=== PATIENT | female | born 1935 | race Caucasian/White ===

== ENCOUNTER 2019-07-11 21:57 | Emergency (ER) | payer MEDICARE, BC ==
[2019-07-11 23:10] LABS: CHLORIDE,CL 104 mmol/L (98-107); SODIUM,NA 140 mmol/L (136-145)
[2019-07-11 23:13] LABS: ANION GAP 18.9 mmol/L (10-20)
[2019-07-11] MEDS ORDERED: Sodium Chloride 0.9% 500 ML IV ONE (23:22)
--- NOTE | 2019-07-12 00:49 | EDM.PDOC ---
ED HPI GENERAL MEDICAL PROBLEM - General Chief Complaint: General Stated Complaint: LOW BP Time Seen by Provider: 07/11/19 22:12 Source of Information: Reports: Patient History Limitations: Reports: No Limitations - History of Present Illness INITIAL COMMENTS - FREE TEXT/NARRATIVE: Pt states she had low BP at home Feels weak No fever No chest pain No SOB No cough No N/V/D No dysuria Onset: Today, Gradual Location: Reports: Generalized - Related Data Allergies Allergy/AdvReac Type Severity Reaction Status Date / Time celecoxib [From Celebrex] Allergy Other Verified 07/11/19 21:49 hydromorphone [From Dilaudid] Allergy Dizziness Verified 07/11/19 21:49 losartan Allergy Other Verified 07/11/19 21:49 meperidine [From Demerol] Allergy Confusion Verified 07/11/19 21:49 morphine Allergy Other Verified 07/11/19 21:49 simvastatin [From Zocor] Allergy Other Verified 07/11/19 21:49 Home Meds: Home Meds Acetaminophen [Tylenol] 650 mg PO Q4H PRN 07/11/19 [History] Apixaban [Eliquis] 5 mg PO BID 07/11/19 [History] Nystatin/Triamcinolone Crm [Mycolog Crm] 15 gm .XX BID PRN 07/11/19 [History] amLODIPine Besylate [Amlodipine Besylate] 1 tab PO DAILY 07/11/19 [History] glipiZIDE [Glipizide ER] 1 tab PO DAILY 07/11/19 [History] lisinopriL [Lisinopril] 1 tab PO DAILY 07/11/19 [History] Past Medical History Cardiovascular History: Reports: Afib, Heart Failure, High Cholesterol, Hypertension, Other (See Below) Other Cardiovascular History: ascending aorta dilation Respiratory History: Reports: Sleep Apnea Gastrointestinal History: Reports: Cholelithiasis, Diverticulosis, GERD, Hiatal Hernia, PUD Genitourinary History: Reports: Renal Disease Musculoskeletal History: Reports: Osteoarthritis, Osteoporosis, Other (See Below ) Other Musculoskeletal History: bilateral carpal tunnel syndrome, polymyalgia rheumatica Neurological History: Reports: Neuropathy, Peripheral, Other (See Below) Other Neuro History: cervical stenosis of spinal canal Endocrine/Metabolic History: Reports: Diabetes, Type II, Obesity/BMI 30+ Hematologic History: Reports: Polycythemia Dermatologic History: Reports: Other (See Below) Other Dermatologic History: atopic dermatitis Social & Family History - Tobacco Use Smoking Status *Q: Never Smoker ED ROS GENERAL - Review of Systems Review Of Systems: See Below Constitutional: Reports: Weakness HEENT: Reports: No Symptoms Respiratory: Reports: No Symptoms Cardiovascular: Reports: No Symptoms GI/Abdominal: Reports: No Symptoms : Reports: No Symptoms Musculoskeletal: Reports: No Symptoms Neurological: Reports: No Symptoms ED EXAM, GENERAL - Physical Exam Exam: See Below Exam Limited By: No Limitations General Appearance: Alert, Mild Distress Throat/Mouth: Normal Oropharynx Neck: Supple Respiratory/Chest: Lungs Clear Cardiovascular: Regular Rate, Rhythm GI/Abdominal: Soft, Tender Extremities: Normal Inspection Neurological: Alert, Oriented, No Motor/Sensory Deficits Psychiatric: Normal Affect, Normal Mood Course - Vital Signs Last Recorded V/S: Last Vital Signs Temp 96.2 F L 07/11/19 23:09 Pulse 104 H 07/11/19 22:01 Resp 18 07/11/19 22:01 BP 118/48 L 07/11/19 23:09 Pulse Ox 97 07/11/19 22:01 - Orders/Labs/Meds Orders: Active Orders 24 hr Category Date Time Status EKG Documentation Completion [RC] STAT Care 07/11/19 22:12 Active UA RFX [place] AND CULT IF INDIC [URIN] Stat Lab 07/11/19 22:12 Ordered Labs: Laboratory Tests 07/11/19 07/11/19 Range/Units 22:40 22:40 WBC 12.5 H (4.0-10.0) x10^3/uL RBC 5.57 H (4.00-5.50) x10^6/uL Hgb 16.9 H (12.0-16.0) g/dL Hct 49.4 H (33.0-47.0) % MCV 88.7 (78.0-93.0) fL MCH 30.3 (26.0-32.0) pg MCHC 34.2 (32.0-36.0) g/dL RDW Coeff of Feli 12.9 (10.0-15.0) % Plt Count 246 (130-400) x10^3/uL Neut % (Auto) 83.6 H (50.0-80.0) % Lymph % (Auto) 12.1 L (25.0-50.0) % [place] % (Auto) 3.5 (2.0-11.0) % Eos % (Auto) 0.7 (0.0-4.0) % Baso % (Auto) 0.1 L (0.2-1.2) % Sodium 140 (136-145) mmol/L Potassium 3.9 (3.5-5.1) mmol/L Chloride 104 (98-107) mmol/L Carbon Dioxide 21 (21-32) mmol/L Anion Gap 18.9 (10-20) mmol/L BUN 24 H (7-18) mg/dL Creatinine 1.4 H (0.55-1.02) mg/dL Est Cr Clr Drug Dosing 22.97 mL/min Estimated GFR (MDRD) 36 Glucose 210 H (74-106) mg/dL Calcium 9.0 (8.5-10.1) mg/dL Corrected Calcium 9.08 (8.5-10.1) mg/dL Total Bilirubin 0.5 (0.2-1.0) mg/dL AST 23 (15-37) U/L ALT 18 (14-59) U/L Alkaline Phosphatase 106 (46-116) U/L Troponin I < 0.017 (<=0.056) ng/mL Total Protein 7.5 (6.4-8.2) g/dL Albumin 3.9 (3.4-5.0) g/dL Globulin 3.6 Albumin/Globulin Ratio 1.08 Meds: Medications Discontinued Medications Generic Name Dose Route Start Last Admin Trade Name Freq PRN Reason Stop Dose Admin Sodium Chloride 500 mls @ 500 mls/hr 07/11/19 23:22 07/11/19 23:49 Normal Saline IV 07/12/19 00:21 500 mls/hr ONETIME ONE Administration - Re-Assessments/Exams Free Text/Narrative Re-Assessment/Exam: 07/12/19 00:47 Pt had diarrhea X 2 in ER See lab Pt with hx/o Afib and chronic renal issues Pt given 500 ml NS in ER and feels much better No symptoms currently Pt BP 146 /82 HR 70's Pt ambulating in [place] Departure - Departure Time of Disposition: 01:00 Disposition: Home, Self-Care 01 Clinical Impression: Weakness Diarrhea Qualifiers: Diarrhea type: unspecified type Qualified Code(s): R19.7 - Diarrhea, unspecified - Discharge Information *PRESCRIPTION DRUG MONITORING PROGRAM REVIEWED*: Not Applicable *COPY OF PRESCRIPTION DRUG MONITORING REPORT IN PATIENT MAYTE: Not Applicable Instructions: Weakness, [id number] Referrals: Roslyn Harkins DO [Primary Care Provider] - Additional Instructions: Follow up in clinic Sepsis Event Note - Evaluation Sepsis Screening Result: No Definite Risk - Focused Exam Vital Signs: Vital Signs Temp Temp Pulse Resp BP Pulse Ox 07/11/19 23:09 96.2 F L 118/48 L 07/11/19 22:18 97.2 F 07/11/19 22:01 97.2 F 104 H 18 114/69 97 Date Exam was Performed: 07/12/19 Time Exam was Performed: 00:45 - My Orders Last 24 Hours: My Active Orders 07/11/19 22:12 EKG Documentation Completion [RC] STAT UA RFX GAST[place] AND CULT IF INDIC [URIN] Stat - Assessment/Plan Last 24 Hours: My Active Orders 07/11/19 22:12 EKG Documentation Completion [RC] STAT UA RFX [place] AND CULT IF INDIC [URIN] Stat
== END 2019-07-12 01:10 | disposition home or self-care (01) ==
LOC: VM.ED 21:57
DX: R53.1 Weakness (principal); R19.7 Diarrhea, unspecified; I48.91 Unspecified atrial fibrillation; I11.0 Hypertensive heart disease with heart failure; I50.9 Heart failure, unspecified; E66.9 Obesity, unspecified; E11.42 Type 2 diabetes mellitus with diabetic polyneuropathy; Z88.8 Allergy status to other drugs, medicaments and biological substances; Z88.5 Allergy status to narcotic agent; Z79.01 Long term (current) use of anticoagulants; Z79.899 Other long term (current) drug therapy; Z79.84 Long term (current) use of oral hypoglycemic drugs; Z68.39 Body mass index [BMI] 39.0-39.9, adult
CPT/HCPCS: 36415; 80053; 84484; 85025; 93005; 96360; 99284-GF; 99285-25; J7040

== ENCOUNTER 2023-12-04 13:10 | Observation (INO) | payer BC, MEDICARE ==
[2023-12-04] MEDS: fentaNYL 50 MCG/ML SDV IVPUSH ONE ×3 (13:11→23:16)
[2023-12-04 13:43] LABS: BASOPHILS PERCENT AUTO 0.1 % (0.2-1.2); EOSINOPHILS ABSOLUTE AUTO 0.1 x10^3/uL (0.0-0.5); EOSINOPHILS PERCENT AUTO 0.8 % (0.0-4.0); HEMATOCRIT 41.6 % (33.0-47.0); HEMOGLOBIN 14.2 g/dL (12.0-16.0); IMMATURE GRAN ABSOLUTE AUTO 0.03 x10^3/uL (0.00-0.07); LYMPHOCYTES ABSOLUTE AUTO 1.3 x10^3/uL (1.0-4.8); LYMPHOCYTES PERCENT AUTO 16.6 % (25.0-50.0); MEAN CORPUSCULAR HEMOGLOBIN 30.9 pg (26.0-32.0); MEAN CORPUSCULAR HGB CONC 34.1 g/dL (32.0-36.0); MEAN CORPUSCULAR VOLUME 90.6 fL (78.0-93.0); MONOCYTES ABSOLUTE AUTO 0.5 x10^3/uL (0.0-0.8); MONOCYTES PERCENT AUTO 6.2 % (2.0-11.0); NEUTROPHILS ABSOLUTE AUTO 5.9 x10^3/uL (1.8-7.7); NEUTROPHILS PERCENT AUTO 75.9 % (50.0-80.0); PLATELET COUNT,PLT 204 x10^3/uL (130-400); RED BLOOD CELL COUNT 4.59 x10^6/uL (4.00-5.50); WHITE BLOOD CELL COUNT,WBC 7.7 x10^3/uL (4.0-10.0)
[2023-12-04] MEDS ORDERED: Ondansetron 4 MG/2 ML SDV ONE (13:48)
[2023-12-04] MEDS: Ondansetron 4 MG/2 ML SDV IVPUSH ONE (13:50)
[2023-12-04 14:06] LABS: A/G RATIO 1.25; BILIRUBIN TOTAL 0.7 mg/dL (0.2-1.0); CALCIUM 9.2 mg/dL (8.5-10.1); CREATININE 1.3 mg/dL (0.55-1.02); EST CRCL DRUG DOSING (CG) 25.83 mL/min; POTASSIUM,K 3.9 mmol/L (3.5-5.1); PROTEIN TOTAL,TP 7.2 g/dL (6.4-8.2)
[2023-12-04 14:11] LABS: ANION GAP 16.9 mmol/L (5-15)
[2023-12-04] MEDS: HYDROmorphone 0.5 MG/0.5 ML Syringe IVPUSH PRN (16:07)
[2023-12-04] MEDS: Acetaminophen 500 MG Tab PO SCH (16:49)
[2023-12-04] MEDS: Ondansetron 4 MG/2 ML SDV IVPUSH PRN (23:12)
[2023-12-05] MEDS: fentaNYL 50 MCG/ML SDV IVPUSH PRN (01:27)
[2023-12-05] MEDS ORDERED: Flumazenil 0.1 MG/ML 5 ML MDV IVPUSH PRN (06:24)
[2023-12-05] MEDS: LORazepam 2 MG/ML SDV IVPUSH PRN (06:53)
[2023-12-05 08:16] LABS: HEMATOCRIT 35.3 % (33.0-47.0); HEMOGLOBIN 12.2 g/dL (12.0-16.0); MEAN CORPUSCULAR HEMOGLOBIN 30.8 pg (26.0-32.0); MEAN CORPUSCULAR HGB CONC 34.6 g/dL (32.0-36.0); MEAN CORPUSCULAR VOLUME 89.1 fL (78.0-93.0); RED BLOOD CELL COUNT 3.96 x10^6/uL (4.00-5.50); WHITE BLOOD CELL COUNT,WBC 9.1 x10^3/uL (4.0-10.0)
[2023-12-05] MEDS ORDERED: glipiZIDE 2.5 MG Tab.ER PO SCH (09:00)
[2023-12-05] MEDS: Pantoprazole 40 MG Vial IVPUSH ONE (09:54)
[2023-12-05] MEDS: amLODIPine 10 MG Tab PO SCH (10:37)
[2023-12-05] MEDS: Lisinopril 10 MG Tab PO SCH (10:37)
[2023-12-05 10:41] LABS: A/G RATIO 0.97; BILIRUBIN TOTAL 0.6 mg/dL (0.2-1.0); CALCIUM 8.6 mg/dL (8.5-10.1); CREATININE 0.9 mg/dL (0.55-1.02); EST CRCL DRUG DOSING (CG) 37.31 mL/min; PROTEIN TOTAL,TP 6.1 g/dL (6.4-8.2)
[2023-12-05] MEDS: Enoxaparin 30 MG/0.3 ML Syringe SUBCUT SCH (11:19)
== END 2023-12-05 13:50 | disposition short-term general hospital (02) ==
LOC: VM.ED 13:10 → VM.MS 15:08
PROVIDERS: ADMIT Physician Assistant; ATTEND Physician Assistant
DX: S72.142A Displaced intertrochanteric fracture of left femur, initial encounter for closed fracture (principal); I11.0 Hypertensive heart disease with heart failure; I50.9 Heart failure, unspecified; E11.42 Type 2 diabetes mellitus with diabetic polyneuropathy; K21.9 Gastro-esophageal reflux disease without esophagitis; E78.00 Pure hypercholesterolemia, unspecified; I48.91 Unspecified atrial fibrillation; Z79.01 Long term (current) use of anticoagulants; Z79.84 Long term (current) use of oral hypoglycemic drugs; Z79.899 Other long term (current) drug therapy; Z88.5 Allergy status to narcotic agent; Z88.8 Allergy status to other drugs, medicaments and biological substances; W18.30XA Fall on same level, unspecified, initial encounter
CPT/HCPCS: 36415; 73502; 80053; 82947; 85025; 85027; A9270; J1170; J1650; J2060; J2405; J2470; J3010; 96372; 96374; 96375; 96376; 99223; 99238; 99285-25; G0378

== ENCOUNTER 2023-12-11 07:16 | Inpatient (IN) | payer MEDICARE ==
[2023-12-11] MEDS ORDERED: Acetaminophen 325 MG Tab PO PRN (12:30)
[2023-12-11] MEDS: Sennosides/Docusate Sodium 50-8.6 MG Tab PO SCH (14:11)
[2023-12-11] MEDS: Acetaminophen Soln 160 MG/5 ML UD Cup PO SCH (14:11)
[2023-12-11] MEDS: Pantoprazole 40 MG Tab.CR PO SCH (20:17)
[2023-12-11] MEDS: Apixaban 2.5 MG Tab PO SCH (20:18)
[2023-12-11] MEDS: oxyCODONE 5 MG Tab PO PRN (20:19)
[2023-12-12] MEDS: amLODIPine 5 MG Tab PO SCH (08:33)
[2023-12-12] MEDS: Magnesium Hydroxide 400 MG/5 ML Susp 30 ML Cup PO PRN (08:38)
[2023-12-12] MEDS ORDERED: Pantoprazole 40 MG Tab.CR PO SCH (09:00)
[2023-12-14 07:24] LABS: CALCIUM 8.3 mg/dL (8.5-10.1); CREATININE 1.1 mg/dL (0.55-1.02); EST CRCL DRUG DOSING (CG) 30.53 mL/min; POTASSIUM,K 4.5 mmol/L (3.5-5.1)
[2023-12-14 07:29] LABS: BASOPHILS PERCENT AUTO 0.1 % (0.2-1.2); EOSINOPHILS ABSOLUTE AUTO 0.2 x10^3/uL (0.0-0.5); EOSINOPHILS PERCENT AUTO 1.6 % (0.0-4.0); HEMATOCRIT 28.2 % (33.0-47.0); HEMOGLOBIN 9.5 g/dL (12.0-16.0); IMMATURE GRAN ABSOLUTE AUTO 0.13 x10^3/uL (0.00-0.07); LYMPHOCYTES ABSOLUTE AUTO 1.1 x10^3/uL (1.0-4.8); LYMPHOCYTES PERCENT AUTO 11.4 % (25.0-50.0); MEAN CORPUSCULAR HEMOGLOBIN 30.8 pg (26.0-32.0); MEAN CORPUSCULAR HGB CONC 33.7 g/dL (32.0-36.0); MEAN CORPUSCULAR VOLUME 91.6 fL (78.0-93.0); MONOCYTES ABSOLUTE AUTO 0.6 x10^3/uL (0.0-0.8); MONOCYTES PERCENT AUTO 6.6 % (2.0-11.0); NEUTROPHILS ABSOLUTE AUTO 7.3 x10^3/uL (1.8-7.7); NEUTROPHILS PERCENT AUTO 78.9 % (50.0-80.0); PLATELET COUNT,PLT 388 x10^3/uL (130-400); RED BLOOD CELL COUNT 3.08 x10^6/uL (4.00-5.50); WHITE BLOOD CELL COUNT,WBC 9.3 x10^3/uL (4.0-10.0)
[2023-12-14 07:36] LABS: ANION GAP 10.5 mmol/L (5-15)
[2023-12-14] MEDS: Lisinopril 5 MG Tab PO SCH (08:12)
[2023-12-14] MEDS: Acetaminophen 325 MG Tab PO SCH (13:35)
[2023-12-14] MEDS: Gabapentin 100 MG Cap PO SCH (20:16)
[2023-12-15] MEDS: Acetaminophen Soln 160 MG/5 ML UD Cup PO PRN (00:17)
[2023-12-18 06:58] LABS: BASOPHILS PERCENT AUTO 0.1 % (0.2-1.2); EOSINOPHILS ABSOLUTE AUTO 0.1 x10^3/uL (0.0-0.5); EOSINOPHILS PERCENT AUTO 0.6 % (0.0-4.0); HEMOGLOBIN 9.7 g/dL (12.0-16.0); IMMATURE GRAN ABSOLUTE AUTO 0.22 x10^3/uL (0.00-0.07); LYMPHOCYTES PERCENT AUTO 13.1 % (25.0-50.0); MEAN CORPUSCULAR HEMOGLOBIN 30.6 pg (26.0-32.0); MEAN CORPUSCULAR HGB CONC 33.4 g/dL (32.0-36.0); MEAN CORPUSCULAR VOLUME 91.5 fL (78.0-93.0); MONOCYTES ABSOLUTE AUTO 1.1 x10^3/uL (0.0-0.8); NEUTROPHILS ABSOLUTE AUTO 5.4 x10^3/uL (1.8-7.7); NEUTROPHILS PERCENT AUTO 69.4 % (50.0-80.0); PLATELET COUNT,PLT 399 x10^3/uL (130-400); RED BLOOD CELL COUNT 3.17 x10^6/uL (4.00-5.50); WHITE BLOOD CELL COUNT,WBC 7.7 x10^3/uL (4.0-10.0)
[2023-12-18 07:11] LABS: CALCIUM 8.6 mg/dL (8.5-10.1); CREATININE 1.1 mg/dL (0.55-1.02); EST CRCL DRUG DOSING (CG) 30.53 mL/min; POTASSIUM,K 4.3 mmol/L (3.5-5.1)
[2023-12-18 07:17] LABS: ANION GAP 12.3 mmol/L (5-15)
[2023-12-21] MEDS: Apixaban 2.5 MG Tab PO SCH (11:41)
[2023-12-21] MEDS: ALPRAZolam 0.25 MG Tab PO PRN (11:46)
[2023-12-21] MEDS: ALPRAZolam 0.25 MG Tab PO ONE (11:48)
[2023-12-21] MEDS ORDERED: Aluminum Hydroxide/Magnesium Hydroxide/Simethicone Susp 30 ML Cup PO PRN (12:31)
[2023-12-23] MEDS: Escitalopram 10 MG Tab PO SCH (08:50)
[2023-12-24 06:44] LABS: APPEARANCE,URINE CLOUDY (CLEAR); BILIRUBIN,URINE NEGATIVE (NEGATIVE); COLOR,URINE AMBER (YELLOW); GLUCOSE,URINE NEGATIVE (NEGATIVE); KETONES,URINE NEGATIVE (NEGATIVE); LEUKOCYTE ESTERASE,URINE NEGATIVE (NEGATIVE); NITRITE,URINE POSITIVE (NEGATIVE); OCCULT BLOOD,URINE NEGATIVE (NEGATIVE); PH,URINE 8.5 (5.0-8.0); PROTEIN,URINE 100 mg/dL (NEGATIVE); UROBILINOGEN,URINE 0.2 EU/dL (0.2)
[2023-12-24 07:28] LABS: RBC,URINE 0-5 /HPF (NOT SEEN); SQUAMOUS EPITHELIAL CELLS,UR FEW /HPF (NOT SEEN)
[2023-12-24 07:29] LABS: AMORPHOUS SEDIMENT,URINE MANY; BACTERIA,URINE FEW /HPF (NOT SEEN); GRANULAR CASTS,URINE FEW; TRIPLE PHOSPHATE CRYSTALS,UR FEW /HPF (NOT SEEN)
[2023-12-24] MEDS: Amoxicillin/Clavulanate K 875-125 MG Tab PO SCH (10:13)
[2023-12-25] MEDS ORDERED: Sennosides/Docusate Sodium 50-8.6 MG Tab PO PRN (17:17)
[2023-12-26] MEDS: Ondansetron 4 MG Tab.DIS PO PRN (18:14)
[2023-12-29 07:15] LABS: BASOPHILS PERCENT AUTO 0.2 % (0.2-1.2); EOSINOPHILS ABSOLUTE AUTO 0.1 x10^3/uL (0.0-0.5); EOSINOPHILS PERCENT AUTO 1.7 % (0.0-4.0); HEMATOCRIT 25.5 % (33.0-47.0); HEMOGLOBIN 8.9 g/dL (12.0-16.0); IMMATURE GRAN ABSOLUTE AUTO 0.09 x10^3/uL (0.00-0.07); LYMPHOCYTES ABSOLUTE AUTO 0.9 x10^3/uL (1.0-4.8); LYMPHOCYTES PERCENT AUTO 19.1 % (25.0-50.0); MEAN CORPUSCULAR HEMOGLOBIN 30.5 pg (26.0-32.0); MEAN CORPUSCULAR HGB CONC 34.9 g/dL (32.0-36.0); MEAN CORPUSCULAR VOLUME 87.3 fL (78.0-93.0); MONOCYTES ABSOLUTE AUTO 0.4 x10^3/uL (0.0-0.8); MONOCYTES PERCENT AUTO 9.2 % (2.0-11.0); NEUTROPHILS ABSOLUTE AUTO 3.2 x10^3/uL (1.8-7.7); NEUTROPHILS PERCENT AUTO 67.9 % (50.0-80.0); PLATELET COUNT,PLT 322 x10^3/uL (130-400); RED BLOOD CELL COUNT 2.92 x10^6/uL (4.00-5.50); WHITE BLOOD CELL COUNT,WBC 4.8 x10^3/uL (4.0-10.0)
[2023-12-29 07:27] LABS: CALCIUM 8.3 mg/dL (8.5-10.1); CREATININE 0.9 mg/dL (0.55-1.02); EST CRCL DRUG DOSING (CG) 37.31 mL/min
[2023-12-29] MEDS: busPIRone 5 MG Tab PO SCH (09:08)
[2023-12-30] MEDS: Pantoprazole 40 MG Tab.CR PO SCH (06:03)
[2023-12-30 07:04] LABS: BASOPHILS PERCENT AUTO 0.4 % (0.2-1.2); EOSINOPHILS ABSOLUTE AUTO 0.2 x10^3/uL (0.0-0.5); EOSINOPHILS PERCENT AUTO 2.8 % (0.0-4.0); HEMATOCRIT 26.4 % (33.0-47.0); IMMATURE GRAN ABSOLUTE AUTO 0.18 x10^3/uL (0.00-0.07); LYMPHOCYTES ABSOLUTE AUTO 1.1 x10^3/uL (1.0-4.8); LYMPHOCYTES PERCENT AUTO 20.6 % (25.0-50.0); MEAN CORPUSCULAR HEMOGLOBIN 29.7 pg (26.0-32.0); MEAN CORPUSCULAR HGB CONC 34.1 g/dL (32.0-36.0); MEAN CORPUSCULAR VOLUME 87.1 fL (78.0-93.0); MONOCYTES ABSOLUTE AUTO 0.5 x10^3/uL (0.0-0.8); MONOCYTES PERCENT AUTO 8.7 % (2.0-11.0); NEUTROPHILS ABSOLUTE AUTO 3.4 x10^3/uL (1.8-7.7); NEUTROPHILS PERCENT AUTO 64.1 % (50.0-80.0); PLATELET COUNT,PLT 526 x10^3/uL (130-400); RED BLOOD CELL COUNT 3.03 x10^6/uL (4.00-5.50); WHITE BLOOD CELL COUNT,WBC 5.3 x10^3/uL (4.0-10.0)
[2023-12-30 07:18] LABS: CALCIUM 8.8 mg/dL (8.5-10.1); CREATININE 0.9 mg/dL (0.55-1.02); EST CRCL DRUG DOSING (CG) 37.31 mL/min; POTASSIUM,K 4.5 mmol/L (3.5-5.1)
[2023-12-30 07:20] LABS: ANION GAP 14.5 mmol/L (5-15)
[2024-01-04 07:02] LABS: EOSINOPHILS ABSOLUTE AUTO 0.2 x10^3/uL (0.0-0.5); HEMATOCRIT 31.1 % (33.0-47.0); HEMOGLOBIN 10.1 g/dL (12.0-16.0); IMMATURE GRAN ABSOLUTE AUTO 0.15 x10^3/uL (0.00-0.07); LYMPHOCYTES ABSOLUTE AUTO 1.3 x10^3/uL (1.0-4.8); LYMPHOCYTES PERCENT AUTO 21.6 % (25.0-50.0); MEAN CORPUSCULAR HEMOGLOBIN 29.3 pg (26.0-32.0); MEAN CORPUSCULAR HGB CONC 32.5 g/dL (32.0-36.0); MEAN CORPUSCULAR VOLUME 90.1 fL (78.0-93.0); MONOCYTES ABSOLUTE AUTO 0.7 x10^3/uL (0.0-0.8); MONOCYTES PERCENT AUTO 11.3 % (2.0-11.0); NEUTROPHILS ABSOLUTE AUTO 3.8 x10^3/uL (1.8-7.7); NEUTROPHILS PERCENT AUTO 61.6 % (50.0-80.0); PLATELET COUNT,PLT 547 x10^3/uL (130-400); RED BLOOD CELL COUNT 3.45 x10^6/uL (4.00-5.50); WHITE BLOOD CELL COUNT,WBC 6.1 x10^3/uL (4.0-10.0)
[2024-01-04 07:12] LABS: ANION GAP 12.2 mmol/L (5-15); CALCIUM 8.8 mg/dL (8.5-10.1); CREATININE 1.1 mg/dL (0.55-1.02); EST CRCL DRUG DOSING (CG) 30.53 mL/min; POTASSIUM,K 4.2 mmol/L (3.5-5.1)
[2024-01-07] MEDS ORDERED: Acetaminophen 325 MG Tab PO PRN (10:28)
[2024-01-07] MEDS: Miconazole 2% Top Powder 45 GM Container TOP SCH (22:21)
[2024-01-08] MEDS: busPIRone 5 MG Tab PO ONE (11:08)
== END 2024-01-08 11:40 | disposition home health service (06) | DRG 560 ==
LOC: VM.MS 11:10
PROVIDERS: ADMIT Internal Medicine; ATTEND Internal Medicine
DX: S72.142D Displaced intertrochanteric fracture of left femur, subsequent encounter for closed fracture with routine healing (principal); I13.0 Hypertensive heart and chronic kidney disease with heart failure and stage 1 through stage 4 chronic kidney disease, or unspecified chronic kidney disease; I50.32 Chronic diastolic (congestive) heart failure; I48.0 Paroxysmal atrial fibrillation; M80.00XD Age-related osteoporosis with current pathological fracture, unspecified site, subsequent encounter for fracture with routine healing; E11.22 Type 2 diabetes mellitus with diabetic chronic kidney disease; K21.00 Gastro-esophageal reflux disease with esophagitis, without bleeding; N18.31 Chronic kidney disease, stage 3a; G47.33 Obstructive sleep apnea (adult) (pediatric); M81.0 Age-related osteoporosis without current pathological fracture; E66.3 Overweight; E78.2 Mixed hyperlipidemia; E11.42 Type 2 diabetes mellitus with diabetic polyneuropathy; K44.9 Diaphragmatic hernia without obstruction or gangrene; R19.7 Diarrhea, unspecified; Z88.5 Allergy status to narcotic agent; Z88.8 Allergy status to other drugs, medicaments and biological substances; Z79.01 Long term (current) use of anticoagulants; Z68.27 Body mass index [BMI] 27.0-27.9, adult; Z90.89 Acquired absence of other organs; Z79.899 Other long term (current) drug therapy; W10.9XXD Fall (on) (from) unspecified stairs and steps, subsequent encounter
CPT/HCPCS: 36415; 51798; 80048; 81001; 82947; 85025; 87086; 87493; 95851-GO; 97110-GP; 97112-GP; 97116-GP; 97161-GP; 97164-GP; 97165-GO; 97530-GO; 97530-GP; 97535-GO; A9270-GY